=== PATIENT | male | born 2005 | race African-American/Black ===

== ENCOUNTER 2024-06-19 17:05 | Emergency (ER) | payer SELFPAY ==
[~2024-06-19] VITALS: Ht 172.7 cm; Wt 72.6 kg
[2024-06-19 17:05] VITALS: BP_SYST 113; PULSE 73; RESP 19; TEMP 98.5; O2SAT 99
== END 2024-06-19 17:45 | disposition left against medical advice (07) ==
LOC: SED 17:05
DX: T50.991A Poisoning by other drugs, medicaments and biological substances, accidental (unintentional), initial encounter (principal); Z53.21 Procedure and treatment not carried out due to patient leaving prior to being seen by health care provider; Y92.89 Other specified places as the place of occurrence of the external cause